=== PATIENT | male | born 1985 | race Hispanic/Latino ===

== ENCOUNTER 2018-06-30 03:07 | Emergency (ER) | payer BC ==
[~2018-06-30] VITALS: Ht 165.1 cm; Wt 97.3 kg
--- OUTSIDE RECORDS SUMMARY | 2018-06-30 03:10 | XMS REPORT | Clinical Summary ---
Author Author [facility] Address Unknown Phone Unavailable Care Team Providers Care Intern Architect Name Role Phone PCP Unavailable Allergies No Known Allergies Medications No known medications Active Problems Not on file Social History Date Tobacco Use Types Packs/Day Years Used Never Smoker Alcohol Use Drinks/Week oz/Week Comments Yes Sex Assigned at Date Recorded Not on file Industry Job Start Date Occupation Not on file Not on file Not on file Travel End Travel History Travel Start No recent travel history available. Last Filed Vital Signs Not on file Plan of Treatment Not on file Results Not on fileafter 06/29/2017
--- NOTE | 2018-06-30 03:22 | NUR ---
pt actively vomited about 400 ml of food paricle emesis
[2018-06-30] MEDS ORDERED: ONDANSETRON HCL INJ 2MG/ML 2ML 2 MG/ML VIAL IV STA (03:27)
[2018-06-30] MEDS ORDERED: MORPHINE SULFATE 2 MG/ML SYR 1ML IV STA (03:27)
[2018-06-30] MEDS ORDERED: KETOROLAC TROMETHAMINE 30 MG/ML VIAL IV STA (03:27)
[2018-06-30] MEDS ORDERED: SODIUM CHLORIDE 0.9% 1000ML 1,000 ML IV SCH (03:30)
--- NOTE | 2018-06-30 04:14 | Diagnostic Imaging Report ---
CT Abdomen and Pelvis without contrast INDICATION: Left side abdominal/groin pain TECHNIQUE: Thin collimation axial images obtained from the diaphragm to the level of the pubic symphysis without nonionic intravenous contrast. Dose reduction techniques used: Automated exposure control, adjustment of the mAs and/or kVp according to patient size, standardized low-dose protocol, and/or iterative reconstruction technique. RADIATION DOSE: Total DLP: 893.53 mGy*cm Estimated effective dose: (DLP x 0.015 x size factor) mSv CTDIvol has been reviewed. It is below the limits set by the Radiation Protocol Committee (RPC). COMPARISON: None. ABDOMEN FINDINGS: Lung Bases: Clear. The visualized portion of the mediastinum is normal. Liver: Decreased in attenuation. No mass. Gallbladder: Present and appears normal. No ductal dilatation. Pancreas: Normal attenuation without mass. Spleen: Normal size without mass. Adrenal Glands: No evidence for mass. Kidneys: Right: No renal calculus. No cortical mass or hydronephrosis Left: Edematous. Calculus in the lower pole measures 2 3-mm. Collecting system is mildly distended. No perinephric fluid collection Lymph Nodes: No lymphadenopathy. Aorta: Normal in diameter. PELVIS FINDINGS: Bowel: Stomach: Normal. Small Bowel: Normal in caliber with normal wall thickness. Large Bowel: Normal in caliber with normal wall thickness. Appendix: Normal. Bladder: Collapsed. Ureters: The right ureter is normal. The left ureter is distended throughout its course without evidence of calculus. Prostate: Punctate calcification in the mid body measures 2 mm and is just to the left of midline. The prosthetic urethra is not visible. No free fluid or fluid collection. Peritoneal calcification in the anterior left hemiabdomen measures 5 mm. Bones: Unremarkable. IMPRESSION: 1. Left renal edema and mild hydroureteronephrosis without evidence of obstructing stone in the ureter or bladder. A punctate calcification in the prostate gland may represent a stone in the prostatic urethra. There is no evidence of urethral dilatation, however. 2. Steatosis. Signed by: Dr. Konrad Moseley MD on 06/30/2018 4:11 AM
[2018-06-30 04:52] VITALS: BP 123/76
== END 2018-06-30 04:42 | disposition home or self-care (01) ==
LOC: FSED 03:07
DX: R10.32 Left lower quadrant pain (principal); R11.2 Nausea with vomiting, unspecified; N13.30 Unspecified hydronephrosis
CPT/HCPCS: 74176; 80053; 81003; 85025; 96374; 96375; 99284

== ENCOUNTER 2021-05-18 21:48 | Emergency (ER) | payer SELFPAY ==
[~2021-05-18] VITALS: Ht 177.8 cm; Wt 99.8 kg
[2021-05-18] MEDS ORDERED: GABAPENTIN300 MG PO (22:08)
== END 2021-05-18 22:50 | disposition home or self-care (01) ==
LOC: FSED 21:54
DX: G56.21 Lesion of ulnar nerve, right upper limb (principal); G62.9 Polyneuropathy, unspecified; Z87.442 Personal history of urinary calculi
CPT/HCPCS: 80053; 82553; 84484; 85025; 85379; 93005; 99283